=== PATIENT | female | born 1995 | race Hispanic/Latino ===

== ENCOUNTER 2025-01-24 08:23 | Day surgery (SDC) | payer SELFPAY ==
[2025-01-24] MEDS ORDERED: hydrALAZINE 20 MG/ML VIAL SLOW IVP PRN (09:09)
== END 2025-01-24 10:30 | disposition home or self-care (01) ==
LOC: CSHLD/OP 08:23
PROVIDERS: ATTEND Obstetrics & Gynecology
DX: O36.8130 Decreased fetal movements, third trimester, not applicable or unspecified (principal); Z3A.29 29 weeks gestation of pregnancy
CPT/HCPCS: 76815; 76819; 99283

== ENCOUNTER 2025-02-27 15:16 | Inpatient (IN) | payer MEDICAID, OTHER ==
[2025-02-27] MEDS ORDERED: Acetaminophen 500 MG TAB PO PRN (19:16)
[2025-02-27] MEDS ORDERED: hydrALAZINE 20 MG/ML VIAL SLOW IVP PRN (19:16)
[2025-02-27] MEDS ORDERED: Dextrose 50% Abboject 50 ML SYRINGE SLOW IVP PRN (19:22)
[2025-02-27] MEDS ORDERED: Glucagon 1 MG/ML KIT IM PRN (19:22)
[2025-02-27 19:49] LABS: #Basophils 0.03 10x3/uL (0.0-0.2); #Eosinophils 0.09 10x3/uL (0.0-0.5); #Monocytes 0.93 10x3/uL (0.0-1.1); #Neutrophils 10.08 10x3/uL (1.5-8.4); %Basophils 0.2 % (0.0-2.0); %Eosinophils 0.6 % (0.0-6.0); %Lymphocytes 20.0 % (18.0-47.0); %Monocytes 6.6 % (0.0-10.0); %Neutrophils 72.1 % (40.0-75.0); Hematocrit 30.1 % (34.9-44.5); Hemoglobin 9.9 g/dL (12.0-15.5); Mean Corpuscular Hemoglobin 27.0 pg (27.0-33.0); Mean Corpuscular Volume 82.2 fL (81.6-98.3); Platelet Count 388 10x3/uL (150-450); Red Blood Cell (RBC) Count 3.66 10x6/uL (3.90-5.03); White Blood Cell (WBC) Count 14.00 10x3/uL (3.5-10.5)
[2025-02-27 20:07] LABS: ALT (SGPT) Less than 7 U/L (Less than 34); AST (SGOT) 15 U/L (11-34); Albumin 2.4 g/dL (3.1-4.5); Alkaline Phosphatase 193 U/L (40-110); Anion Gap 14 mmol/L (10-20); BUN (Urea Nitrogen) Less than 4 mg/dL (7.0-18.7); Bilirubin, Total 0.1 mg/dL (0.3-1.2); Calc. Creatinine Clearance 0 mL/min (70-130); Calcium 8.1 mg/dL (7.8-10.44); Carbon Dioxide 16 mmol/L (22-29); Chloride 111 mmol/L (98-107); Globulin 3.9 g/dL (2.4-3.5); Glucose 121 mg/dL (70-105); Glucose POC Confirmation 121 mg/dL (70-105); Potassium 3.3 mmol/L (3.5-5.1); Sodium 138 mmol/L (136-145)
[2025-02-27] MEDS: metroNIDAZOLE 500 MG TAB PO SCH (21:43)
[2025-02-27] MEDS: Lantus 1000 UNITS/10 ML VIAL SC SCH (21:44)
[2025-02-27] MEDS: metFORMIN 500 MG TAB PO SCH (21:44)
[2025-02-28 00:28] LABS: Protein, Urine Random Quant 12.0 mg/dL (1-14)
[2025-02-28 00:34] LABS: Glucose, Urine (Dipstick) Normal (Negative); Leukocyte Negative (Negative); Protein, Urine (Dipstick) Negative (Neg-Trace); Specific Gravity, Urine 1.005 (1.005-1.030)
[2025-02-28 00:40] LABS: Bacteria/HPF Rare-Few HPF (None Seen); CAUTI Indications for Culture Pregnancy; WBC/HPF 0-3 HPF (0-3)
[2025-02-28 00:41] LABS: Urine Culture Reflex Yes Yes
[2025-02-28 06:33] VITALS: BMI 81.8
[2025-02-28 07:58] LABS: Magnesium 1.5 mg/dL (1.6-2.6)
[2025-02-28] MEDS ORDERED: Magnesium Sulfate/D5W 1 GM/100 ML BAG IVPB SCH (08:30)
[2025-02-28] MEDS: Magnesium Sulfate/D5W 1 GM in Premix 1 BAG IVPB SCH (10:06)
[2025-02-28] MEDS: metFORMIN 500 MG TAB PO SCH (10:11)
[2025-02-28] MEDS: Famotidine 20 MG TAB PO SCH (10:30)
[2025-02-28 16:27] VITALS: BP 115/67; TEMP 98.4
[2025-02-28] MEDS ORDERED: metroNIDAZOLE 0.75% 70 GM TUBE VAG SCH (21:00)
[2025-02-28] MEDS ORDERED: Clindamycin 2% Cream 40 gm Tube VAG SCH (21:00)
== END 2025-02-28 18:00 | disposition home or self-care (01) | DRG 833 ==
LOC: CSHANTE 18:36
PROVIDERS: ADMIT Family Medicine; ATTEND Family Medicine
DX: O36.63X0 Maternal care for excessive fetal growth, third trimester, not applicable or unspecified (principal); O99.213 Obesity complicating pregnancy, third trimester; O24.415 Gestational diabetes mellitus in pregnancy, controlled by oral hypoglycemic drugs; O99.891 Other specified diseases and conditions complicating pregnancy; R03.0 Elevated blood-pressure reading, without diagnosis of hypertension; O99.283 Endocrine, nutritional and metabolic diseases complicating pregnancy, third trimester; O99.013 Anemia complicating pregnancy, third trimester; D64.9 Anemia, unspecified; E87.6 Hypokalemia; O36.8130 Decreased fetal movements, third trimester, not applicable or unspecified; Z3A.33 33 weeks gestation of pregnancy; Z79.84 Long term (current) use of oral hypoglycemic drugs; Z79.899 Other long term (current) drug therapy
CPT/HCPCS: 36415; 36416; 76819; 80053; 81001; 82570; 82728; 82947; 83735; 84100; 84156; 85025; 87086; J1815; J3475

== ENCOUNTER 2025-03-04 18:13 | Day surgery (SDC) | payer MEDICAID, SELFPAY ==
[2025-03-04 18:21] VITALS: BMI 43.0
[2025-03-04] MEDS ORDERED: hydrALAZINE 20 MG/ML VIAL SLOW IVP PRN (18:57)
[2025-03-04] MEDS ORDERED: Acetaminophen 500 MG TAB PO SCH (20:00)
== END 2025-03-04 21:05 | disposition home or self-care (01) ==
LOC: CSHLD/OP 18:13
PROVIDERS: ATTEND Family Medicine
DX: O47.03 False labor before 37 completed weeks of gestation, third trimester (principal); O99.891 Other specified diseases and conditions complicating pregnancy; N89.8 Other specified noninflammatory disorders of vagina; O09.43 Supervision of pregnancy with grand multiparity, third trimester; O21.2 Late vomiting of pregnancy; O24.414 Gestational diabetes mellitus in pregnancy, insulin controlled; Z3A.34 34 weeks gestation of pregnancy; Z67.40 Type O blood, Rh positive
CPT/HCPCS: 87480; 87510; 87660

== ENCOUNTER 2025-03-23 17:46 | Inpatient (IN) | payer MEDICAID ==
[2025-03-23] MEDS ORDERED: hydrALAZINE 20 MG/ML VIAL SLOW IVP PRN ×2 (18:40→22:55)
[2025-03-23 21:29] VITALS: BMI 39.2
[2025-03-23] MEDS ORDERED: Ondansetron PF 4 MG/2 ML Vial IVP PRN (22:55)
[2025-03-23] MEDS ORDERED: Lidocaine 1% (PF) 30 ML VIAL SC PRN (22:55)
[2025-03-23] MEDS ORDERED: Tranexamic Acid 1,000 MG/10 ML VIAL IVP PRN (22:55)
[2025-03-23] MEDS ORDERED: Methylergonovine 0.2 MG/ML VIAL IM PRN (22:55)
[2025-03-23] MEDS ORDERED: Diphenoxylate HCl/Atropine Tablet PO PRN ×2 (22:55)
[2025-03-23] MEDS ORDERED: Acetaminophen 500 MG TAB PO PRN (22:55)
[2025-03-23] MEDS ORDERED: Carboprost 250 MCG/ML AMP IM PRN (22:55)
[2025-03-23] MEDS ORDERED: Oxytocin 30 units/NS 500 ML 500 ML IV SCH ×3 (23:00)
[2025-03-23 23:49] LABS: Hematocrit 34.5 % (34.9-44.5); Hemoglobin 11.1 g/dL (12.0-15.5); Mean Corpuscular Hemoglobin 26.4 pg (27.0-33.0); Mean Corpuscular Volume 81.9 fL (81.6-98.3); Platelet Count 425 10x3/uL (150-450); Red Blood Cell (RBC) Count 4.21 10x6/uL (3.90-5.03); White Blood Cell (WBC) Count 14.97 10x3/uL (3.5-10.5)
[2025-03-24] MEDS: fentaNYL/Ropivacaine Epidural 100 ML ONE
[2025-03-24 00:01] LABS: Glucose 79 mg/dL (70-105)
[2025-03-24] MEDS ORDERED: Ondansetron PF 4 MG/2 ML Vial IVP PRN ×2 (00:14→09:26)
[2025-03-24] MEDS ORDERED: diphenhydrAMINE 50 MG/ML VIAL IVP PRN (00:14)
[2025-03-24] MEDS ORDERED: fentaNYL 2 mcg/Ropivacaine 0.2% Epidural 100 ML CADD EPIDURAL SCH (00:15)
[2025-03-24] MEDS ORDERED: Communication Order-Pharmacy FS SCH (00:15)
[2025-03-24 00:26] LABS: HIV (1/2) Antibody/Antigen Non-Reactive (NonReactive); HIV 1/2 INDEX 0.13 S/CO (<1.00)
[2025-03-24 00:28] LABS: Hep B Surf Ag - L&D Non-Reactive S/CO (NonReactive)
[2025-03-24 00:29] LABS: Syphilis Antibody Index 0.07 S/CO (<1.00 Non-Reactive)
[2025-03-24] MEDS: Ibuprofen 800 MG TAB PO PRN (05:29)
[2025-03-24] MEDS: Famotidine 20 MG TAB PO PRN (07:07)
[2025-03-24] MEDS ORDERED: hydrALAZINE 20 MG/ML VIAL SLOW IVP PRN (09:26)
[2025-03-24] MEDS ORDERED: Methylergonovine 0.2 MG/ML VIAL IM PRN (09:26)
[2025-03-24] MEDS ORDERED: Measles/Mumps/Rubella 10 MCG/0.5 ML VIAL SC ONE (09:26)
[2025-03-24] MEDS ORDERED: Methylergonovine 0.2 MG TAB PO PRN (09:26)
[2025-03-24] MEDS ORDERED: Bisacodyl 10 MG SUPP PR PRN (09:26)
[2025-03-24] MEDS ORDERED: Milk Of Magnesia 30 ML UDCUP PO PRN (09:26)
[2025-03-24] MEDS ORDERED: Preparation H Ointment 28 GM TUBE PR PRN (09:26)
[2025-03-24] MEDS ORDERED: Oxytocin 30 units/NS 500 ML 500 ML IV SCH (09:26)
[2025-03-24] MEDS: Acetaminophen 325 MG TAB PO PRN (09:52)
[2025-03-24] MEDS ORDERED: Bupivacaine 0.25% HCL 30 ML VIAL ONE (11:00)
[2025-03-24] MEDS: Ibuprofen 800 MG TAB PO SCH (16:43)
[2025-03-24] MEDS: Ferrous Sulfate 325 MG TAB PO SCH ×2 (22:14)
[2025-03-25] MEDS: Methylergonovine 0.2 MG/ML VIAL ONE (01:07)
[2025-03-25] MEDS: Tranexamic Acid 1,000 MG/10 ML VIAL ONE (01:08)
[2025-03-25] MEDS: Carboprost 250 MCG/ML AMP ONE (01:08)
[2025-03-25 07:51] VITALS: BP 121/78; TEMP 97.6
[2025-03-25] MEDS: Measles/Mumps/Rubella 10 MCG/0.5 ML VIAL SC ONE (15:23)
[2025-03-27 07:14] LABS: Mumps IgG ABS Less than 9.0 AU/mL (Immune >10.9); Rubella Virus IgG Less than 0.90 index (Immune >0.99)
== END 2025-03-25 17:04 | disposition home or self-care (01) | DRG 807 ==
LOC: CSHLD/OP 17:46 → CSHLD 23:00 → CSHPP 03-24 08:12
PROVIDERS: ADMIT Student in an Organized Health Care Education/Training Program; ATTEND Student in an Organized Health Care Education/Training Program
PROC: 4A1HXCZ Monitoring of Products of Conception, Cardiac Rate, External Approach (ICD-10-PCS; 2025-03-23)
PROC: 10E0XZZ Delivery of Products of Conception, External Approach (ICD-10-PCS; principal; 2025-03-24)
PROC: 3E0134Z Introduction of Serum, Toxoid and Vaccine into Subcutaneous Tissue, Percutaneous Approach (ICD-10-PCS; 2025-03-25)
DX: O36.8130 Decreased fetal movements, third trimester, not applicable or unspecified (principal); Z37.0 Single live birth; O24.424 Gestational diabetes mellitus in childbirth, insulin controlled; Z3A.37 37 weeks gestation of pregnancy; O99.214 Obesity complicating childbirth; Z79.84 Long term (current) use of oral hypoglycemic drugs; Z79.4 Long term (current) use of insulin; Z23 Encounter for immunization; Z79.899 Other long term (current) drug therapy
CPT/HCPCS: 51702; 76819; 82947; 85027; 86735; 86762; 86765; 86780; 86850; 86900; 86901; 87340; 87389; 87480; 87510; 87660; 90707; 99285; J0665